=== PATIENT | female | born 1965 | race Caucasian/White ===

== ENCOUNTER 2021-01-31 11:17 | Emergency (ER) | payer OTHER ==
[~2021-01-31] VITALS: Ht 172.7 cm; Wt 67.1 kg
--- NOTE | 2021-01-31 11:25 | NUR ---
patient seen by
== END 2021-01-31 12:25 | disposition home or self-care (01) ==
LOC: ER 11:17
DX: S92.511A Displaced fracture of proximal phalanx of right lesser toe(s), initial encounter for closed fracture (principal); W22.03XA Walked into furniture, initial encounter; Y92.89 Other specified places as the place of occurrence of the external cause
CPT/HCPCS: 28515; 73660; 99284; J3490; A4663